=== PATIENT | female | born 1975 | race Caucasian/White ===

== ENCOUNTER 2018-07-23 22:21 | Emergency (ER) | payer MEDICAID ==
[~2018-07-23] VITALS: Ht 154.9 cm; Wt 59.5 kg
[2018-07-24 00:20] VITALS: BP 120/84
== END 2018-07-24 00:20 | disposition home or self-care (01) ==
LOC: ED 22:21
DX: R10.84 Generalized abdominal pain (principal); R11.0 Nausea; E03.9 Hypothyroidism, unspecified
CPT/HCPCS: Q0162